=== PATIENT | male | born 1965 | race African-American/Black ===

== ENCOUNTER 2020-06-15 04:49 | Emergency (ER) | payer MEDICAID ==
[~2020-06-15] VITALS: Ht 177.8 cm; Wt 68.6 kg
[~2020-06-15 04:49] MED LIST: AZIT250T89 PO; BACL20TA PO; CEFD300C37 PO; CHLO25TA4 PO; OMEP20TA62 PO
[2020-06-15] MEDS ORDERED: FAMOTIDINE 20 MG TABLET ONE (05:25)
[2020-06-15] MEDS ORDERED: ONDANSETRON ODT 4 MG ONE (05:26)
[2020-06-15] MEDS ORDERED: MAALOX/HYOSCYAMINE/LIDOCAINE 45 ML BTL ONE (05:26)
[2020-06-15] MEDS ORDERED: MAALOX/HYOSCYAMINE/LIDOCAINE 45 ML BTL PO ONE (05:30)
[2020-06-15] MEDS ORDERED: FAMOTIDINE 20 MG TABLET PO ONE (05:30)
[2020-06-15] MEDS ORDERED: ONDANSETRON ODT 4 MG PO ONE (05:30)
--- NOTE | 2020-06-15 05:37 | NUR ---
patient reports hiccuping and burping tonight with a lot of indigestion with some burning in his throat. he states he hasnt vomited for a few hours and denies nausea at this time. meds ordered administered as patient states "lets try them all". patient states he doesnt feel nauseous and feels like he can hold it down". call orozco in reach. patient falling asleep in the middle of treatment/assessment
[2020-06-15 05:41] LABS: BASOPHILS % (AUTO) 1 % (0-1); EOSINOPHILS % (AUTO) 1 % (1-7); LYMPHOCYTES % (AUTO) 39 % (22-44); MEAN CORPUSCULAR HEMOGLOBIN 26.1 pg (27.5-34.5); MEAN CORPUSCULAR HGB CONC 32.1 g/dL (33.2-36.2); MEAN PLATELET VOLUME 6.9 fL (7.4-10.4); MONOCYTES % (AUTO) 12 % (2-9); NEUTROPHILS % (AUTO) 47 % (42-75); PLATELET COUNT 643 x10^3/uL (130-400); RED BLOOD COUNT 4.45 x10^6/uL (4.38-5.82); RED CELL DISTRIBUTION WIDTH 18.3 % (9.4-14.8)
[2020-06-15 05:51] LABS: ALBUMIN 3.3 g/dL (3.4-5.0); ANION GAP 4 mmol/L (5-15); CALCIUM 8.4 mg/dL (8.5-10.1); CHLORIDE 106 mmol/L (98-107)
[2020-06-15 05:55] LABS: MD NO
[2020-06-15 05:56] LABS: ALANINE AMINOTRANSFERASE 17 U/L (12-78); ALKALINE PHOSPHATASE 79 U/L (45-117); BILIRUBIN,TOTAL 0.2 mg/dL (0.2-1.0); CREATININE 1.25 mg/dL (0.7-1.3); TOTAL PROTEIN 7.5 g/dL (6.4-8.2)
--- NOTE | 2020-06-15 06:18 | NUR ---
discharge instructions reviewed with patient. VS remain stable on RA. prescription handed directly to patient. all personal belongings with patient. no IV placed during this ER visit
[2020-06-15 06:20] VITALS: BP 135/82
== END 2020-06-15 06:32 | disposition home or self-care (01) ==
LOC: ED 05:30
DX: K21.9 Gastro-esophageal reflux disease without esophagitis (principal); R11.2 Nausea with vomiting, unspecified; R10.10 Upper abdominal pain, unspecified; I48.91 Unspecified atrial fibrillation; R94.31 Abnormal electrocardiogram [ECG] [EKG]
CPT/HCPCS: 36415; 80053; 83690; 85025; 93005; 99284; Q0162